=== PATIENT | male | born 1940 | race Caucasian/White ===

== ENCOUNTER → 2024-12-29 14:53 | Outpatient (CLI) | payer MEDICARE, OTHER, SELFPAY | PROVIDERS: PCP Emergency Medicine; Visit Provider Urology | DX: N40.1 Benign prostatic hyperplasia with lower urinary tract symptoms (principal); N13.8 Other obstructive and reflux uropathy | CPT/HCPCS: 87086 ==

== ENCOUNTER → 2025-04-01 14:51 | Outpatient (CLI) | payer MEDICARE, OTHER, SELFPAY ==
[2025-04-01 16:28] LABS: Prostate Specific Antigen 5.56 ng/mL (0.10-4.00)
== END ==
PROVIDERS: PCP Emergency Medicine; Referring Provider Emergency Medicine; Visit Provider Urology
DX: R97.20 Elevated prostate specific antigen [PSA] (principal)
CPT/HCPCS: 36415; 84153

== ENCOUNTER → 2025-05-08 14:05 | Outpatient (CLI) | payer MEDICARE, OTHER, SELFPAY ==
--- NOTE | 2025-05-08 14:08 | DI.MRI.S_ITS ---
PROCEDURE: MR PELVIC PROSTATE PROTOCOL INDICATIONS: elevated PSA TECHNIQUE: Coronal HASTE, axial T1 FSE with fat saturation, 3-plane nonbreath-hold T2 FSE. After the administration of contrast, dynamic axial, delayed axial and coronal VIBE or 2-D FLASH with fat saturation through the pelvis. Diffusion weighted imaging and ADC was performed. COMPARISON: None. FINDINGS: Image quality: Diffusion weighted and dynamic contrast enhanced images are diagnostic. Prostate: Gland size is 4.6 x 4.8 x 7.1 cm; ellipsoid gland volume is 82 mL. PSA density is 0.0678 Transitional zone heterogenous nodules are present, either well encapsulated or mostly encapsulated, compatible with PI-RADS 1 or 2 likely BPH nodules. This is the predominant finding. There is hypertrophy of the median lobe, impinging into the bladder neck No suspicious focal nodule The seminal vesicles appear clear. No extracapsular disease. Genitourinary system: Bladder trabeculations, usually from chronic obstruction. Bowel and peritoneum: No bowel obstruction in the lower abdomen. No pathologic ascites. Nodes and vessels: No enlarged lymph nodes or aneurysmal vessel identified in the pelvis. Soft tissues: Possible lipoma in the right adductor compartment, partially seen. There are thin septations. Bones: No suspicious osseous enhancement IMPRESSION: No suspicious PI-RADS 4 or 5 lesion to suggest clinically significant prostate adenocarcinoma. Predominant findings are prostatomegaly and BPH, including hypertrophy into the bladder neck from the median lobe. No pelvic lymphadenopathy by size criteria. No aggressive osseous abnormality. Incidentally noted possible lipoma in the right adductor compartment partially seen with thin septations. A less common consideration is atypical lipomatous tumor. Consider 6-12 month follow-up to ensure stability Dictated by: Tevin Philippe M.D. on 05/10/2025 at 8:31 Approved by: Tevin Philippe M.D. on 05/10/2025 at 8:36
== END ==
LOC: MRI 14:06
PROVIDERS: PCP Emergency Medicine; Referring Provider Urology; Visit Provider Urology
DX: N40.0 Benign prostatic hyperplasia without lower urinary tract symptoms (principal); N32.89 Other specified disorders of bladder; R97.20 Elevated prostate specific antigen [PSA]
CPT/HCPCS: 72197; A9579